=== PATIENT | female | born 1950 | race Caucasian/White ===

== ENCOUNTER 2022-01-13 09:00 | Emergency (ER) | payer MEDICARE, BC, SELFPAY ==
[2022-01-13 09:03] VITALS: BP 165/90; PULSE 89; RESP 16; TEMP 36.5; O2SAT 96; BMI 25.6
--- NOTE | 2022-01-13 10:14 | ED_ITS ---
HPI - Neck Pain/Injury General: Chief Complaint: Neck Pain/Injury Stated Complaint: Neck Pain Time Seen by Provider: 01/13/22 09:44 History of Present Illness: 71-year-old female patient presents to the emergency department with a strained muscle to her left side of her neck. Patient states that has been like this for 9 days patient states she massages it and it seems to get better but then by the end of the day its worse. Patient denies any dizziness or lightheadedness. Patient denies any chest pain or shortness of breath. Patient denies any visual changes. Patient denies any neuro symptoms. Patient denies any fever. Patient denies any injury or trauma. Associated symptoms: Denies dysphagia, difficulty walking, dizziness, headache(s) or nausea Review of Systems Const: Denies: fever(s), chills, body aches, change in appetite, change in weight, fatigue, malaise or diaphoresis Eyes: Denies: change in vision, blurry vision, blind spots, photophobia, eye discomfort, eye discharge, eye redness, floaters or seeing flashes ENMT: Denies: throat pain, uvular edema, enlarged tonsils, odynophagia, hoar seness, mouth pain, swelling of lips/tongue, oral sores, bleeding gums, dental pain, dry mouth, ear or mastoid pain, ear discharge, change in hearing, tinnitus, disequilibrium, nasal discharge, nasal congestion, post nasal drip or sinus pain Card: Denies: chest pain, palpitations, irregular heart rhythm, edema, swelling of feet/ankles, lightheadedness, syncope, pre-syncope, dyspnea on exertion, orthopnea, leg pain with exertion or acrocyanosis Resp: Denies: dyspnea, productive cough, non-productive cough, wheezing, stridor, pain on inspiration, change in phlegm color, hemoptysis or chest congestion GI: Denies: abdominal pain, nausea, vomiting, hematemesis, dysphagia, diarrhea, constipation, GI cramping, change in bowel habits or rectal pain : Denies: flank pain, difficulty voiding, dysuria, urinary frequency, urinary urgency, urinary hesitancy or hematuria Musc: Reports: neck pain; Denies: back pain, extremity pain, extremity swelling, joint pain, joint swelling, joint redness, joint warmth or deformity Skin/Breast: Denies: rash, pruritus, erythema, sores, new lesions, changes in skin color or dry skin Neuro: Denies: headache(s), numbness in extremities, weakness in extremities, sensory changes, lack of coordination, difficulty walking, frequent falls, dizziness, vertigo, confusion, behavioral changes, Slurred speech present, difficulty communicating thoughts or seizure-like activity Psych: Denies: anxiety, depression, suicidal ideation or homicidal ideation Endo: Denies: polyuria, polydipsia, tired all the time, cold intolerance, excessive sweating, flushing, hot flashes or heat intolerance [place]/Lymph: Denies: easy bruising, easy bleeding, petechiae, purpura, enlarged lymph nodes or tender lymph nodes All/Imm: Denies: urticaria, throat swelling, tongue swelling, facial swelling, acute wheezing or itchy eyes Physical Exam HENMT: THROAT: no uvular edema Eye: GENERAL EYE: appearance normal, both eyes and all related structures and normal light reflex DIRECT OPHTHALMOSCOPY: Yes normal light reflex Neck/C-Spine: COMMON NORMALS: full ROM, no lymphadenopathy, supple, no meningeal signs, no JVD, Thyroid normal and No carotid bruits THYROID: Thyroid normal Resp: COMMON NORMALS: normal respiratory effort Cardio: COMMON NORMALS: no JVD, regular rate and regular rhythm RATE: regular rate RHYTHM: regular rhythm Neuro: MENINGEAL SIGNS: Yes no meningeal signs Skin: COMMON NORMALS: no rashes or lesions noted and turgor normal GENERAL SKIN EXAM: no rashes or lesions noted and turgor normal Course Vital Signs: Vital signs: Vital Signs Temperature 97.7 F 01/13/22 09:03 Pulse Rate 89 01/13/22 09:03 Respiratory Rate 16 01/13/22 09:03 Blood Pressure 165/90 01/13/22 09:03 Pulse Oximetry 96 01/13/22 09:03 Oxygen Delivery Me thod 01/13/22 09:03 MDM - Neck Pain/Injury Medical Decision Making Patient is well-appearing nontoxic and in no acute distress.71-year-old female patient presents to the emergency department with a strained muscle to her left side of her neck. Patient states that has been like this for 9 days patient states she massages it and it seems to get better but then by the end of the day its worse. Patient denies any dizziness or lightheadedness. Patient denies any chest pain or shortness of breath. Patient denies any visual changes. Patient denies any neuro symptoms. Patient denies any fever. Patient denies any injury or trauma. Patient's findings are consistent with muscle tension. Patient does not have any cervical spine tenderness. Patient is having muscle spasms to the left lateral aspect of her neck. I discussed with patient applying heating pad and deep tissue massage to this area. I did consider concerns with carotid blockage however patient is not having any dizziness lightheadedness vision changes no neurovascular symptoms noted. I discussed with patient return precautions as well as home care. Discharge Plan Discharge Condition: Stable Coding Level of Care Code ED [employer] for Deana Otto
== END 2022-01-13 10:27 | disposition home or self-care (01) ==
PROVIDERS: Emergency Provider Registered Nurse
DX: S16.1XXA Strain of muscle, fascia and tendon at neck level, initial encounter (principal); X58.XXXA Exposure to other specified factors, initial encounter
CPT/HCPCS: 99282